=== PATIENT | male | born 1940 | race Caucasian/White ===

== ENCOUNTER 2020-05-07 11:55 | Emergency (ER) | payer MEDICARE, BC ==
[~2020-05-07] VITALS: Ht 172.7 cm; Wt 118.4 kg
[~2020-05-07 11:55] MED LIST: AMLODIPINE BESYL5 MG PO; COZAAR100 MG PO; GLIPIZIDE XL10 MG PO; HYDROCHLOROTHIA25 MG PO; LOVASTATIN40 MG PO; METFORMIN HCL1000 MG PO
--- OUTSIDE RECORDS SUMMARY | 2020-05-07 11:58 | XMS ---
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 Courtney has no Care Guidelines for this patient. Yayo VISIT COUNT (12 MO.) 1 [facility] TOTAL 1 NOTE: Visits indicate total known visits. ED/UCC VISIT TRACKING (12 MO.) 05/07/2020 11:56 [facility] [place] TYPE: Emergency COMPLAINT: - CONFUSION INPATIENT VISIT TRACKING (12 MO.) No inpatient visits to display in this time frame [email or web address]
[2020-05-07] MEDS ORDERED: LASIX40 MG PO (13:45)
[2020-05-07] MEDS ORDERED: ALDACTONE50 MG PO (13:45)
[2020-05-07] MEDS ORDERED: ZYLOPRIM300 MG PO (13:46)
[2020-05-07] MEDS ORDERED: XIFAXAN550 MG PO (13:46)
[2020-05-07] MEDS ORDERED: KRISTALOSE10 GM PO (13:46)
[2020-05-07] MEDS ORDERED: DUREZOL5 ML OS (13:47)
[2020-05-07] MEDS ORDERED: SYSTANE COMPLET10 ML OD (13:48)
[2020-05-07] MEDS ORDERED: SYSTANE GEL EYE10 ML OD (13:48)
[2020-05-07] MEDS ORDERED: TYLENOL EXTRA500 MG PO (13:49)
[2020-05-07] MEDS ORDERED: OXYCODONE HCL5 MG PO (13:49)
[2020-05-07] MEDS ORDERED: METOLAZONE2.5 MG PO (13:50)
[2020-05-07] MEDS ORDERED: ZOFRAN8 MG PO (13:51)
[2020-05-07] MEDS ORDERED: PREDNISONE20 MG PO (13:53)
[2020-05-07] MEDS ORDERED: XTAMPZA ER13.5 MG PO (13:55)
--- NOTE | 2020-05-07 15:47 | EKG ---
[facility] [address] [place] [address] Signed Atrial fibrillation Left axis deviation Incomplete left bundle branch block Abnormal ECG When compared with ECG of 15-APR-2016 10:53, Incomplete left bundle branch block is now present Confirmed by CESILIA ROLDAN DO ([id number]) on 05/07/2020 3:47:17 PM Electronically Signed By: CESILIA ROLDAN DO 05/07/20 1547 PATIENT NAME: SEVERINO STEVEN Electrocardiogram DATE OF : 40 PHYSICIAN: CESILIA ROLDAN DO REPORT #: [id number] REPORT IS CONFIDENTIAL AND NOT TO BE RELEASED WITHOUT AUTHORIZATION
[2020-05-08] MEDS ORDERED: METOPROLOL TART50 MG PO (05:43)
[2020-05-08] MEDS ORDERED: CONSTULOSE10 GM/15 M PO (18:25)
[2020-05-08] MEDS ORDERED: METOPROLOL SUCC50 MG PO (18:27)
[2020-05-08] MEDS ORDERED: GLIPIZIDE ER5 MG PO (18:35)
[2020-05-08] MEDS ORDERED: METFORMIN HCL500 MG PO (18:36)
[2020-05-08] MEDS ORDERED: PROCHLORPERAZIN10 MG PO (18:45)
[2020-05-08] MEDS ORDERED: ATROPINE SULFATE2 ML OS (18:46)
[2020-05-08] MEDS ORDERED: MOMETASONE FURO15 G1 TOP (18:48)
== END 2020-05-07 17:45 | disposition home or self-care (01) ==
LOC: ED 11:55
DX: K74.60 Unspecified cirrhosis of liver (principal); E72.20 Disorder of urea cycle metabolism, unspecified; D69.6 Thrombocytopenia, unspecified; D64.9 Anemia, unspecified; I25.10 Atherosclerotic heart disease of native coronary artery without angina pectoris; E11.9 Type 2 diabetes mellitus without complications; I10 Essential (primary) hypertension; I48.91 Unspecified atrial fibrillation; Z87.891 Personal history of nicotine dependence; Z79.899 Other long term (current) drug therapy; Z79.52 Long term (current) use of systemic steroids
CPT/HCPCS: 74177; 80053; 81001; 82140; 85025; 85610; 85730; 93005; 93010; 99285-25; J2405; Q9967

== ENCOUNTER 2020-05-08 01:53 | Inpatient (IN) | payer MEDICARE, BC, OTHER ==
[~2020-05-08] VITALS: Ht 172.7 cm; Wt 112.9 kg
[~2020-05-08 01:53] MED LIST changes: +ALDACTONE50 MG PO; +DUREZOL5 ML OS; +KRISTALOSE10 GM PO; +LASIX40 MG PO; +METOLAZONE2.5 MG PO; +OXYCODONE HCL5 MG PO; +PREDNISONE20 MG PO; +SYSTANE COMPLET10 ML OD; +SYSTANE GEL EYE10 ML OD; +TYLENOL EXTRA500 MG PO; +XIFAXAN550 MG PO; +XTAMPZA ER13.5 MG PO; +ZOFRAN8 MG PO; +ZYLOPRIM300 MG PO
--- OUTSIDE RECORDS SUMMARY | 2020-05-08 01:56 | XMS ---
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 - 2 Visits in 30 Days CARE PROVIDERS There are no care providers on record at this time. Courtney has no Care Guidelines for this patient. [place]ayo VISIT COUNT (12 MO.) 2 [facility] T[facility] 2 NOTE: Visits indicate total known visits. ED/C VISIT TRACKING (12 MO.) 05/08/2020 01:[address] [facility] [place] TYPE: Emergency COMPLAINT: - FALL 05/07/2020 11:56 [facility] [place] TYPE: Emergency COMPLAINT: - CONFUSION INPATIENT VISIT TRACKING (12 MO.) No inpatient visits to display in this time frame [id number]
--- NOTE | 2020-05-08 04:54 | NUR ---
pt ARRIVES TO [place] FLOOR VIA STRETCHER. TRANSFERRED FROM STRETCHER TO HOSPITAL BED 4PA. pt CONFUSED OF SURROUNDINGS, DATE, ORIENTED TO PERSON, , TOWN, THAT HE'S IN HOSPITAL. ASSESSMENT COMPLETE. ATTENDS PLACED ON pt. REDNESS NOTED IN ADA AREA. PORT FLUSHED WNL, GOOD BLOOD RETURN. ICE WATER PROVIDED, pt TAKING DRINKS OF WATER. CALL LIGHT IN REACH. DAUGHTER IN ROOM. BED ALARM ON.
[2020-05-08] MEDS ORDERED: METOPROLOL TART50 MG PO (05:43)
--- NOTE | 2020-05-08 07:30 | NUR ---
CALL LIGHT ANSWERED. PATIENT RESTING IN BED. DIAPER CARE DONE. PATIENT REPOSITIONED ON HIS LEFT SIDE. TWO PERSON ASSISTING. CALL LIGHT WITHIN REACH. NO OTHER NEEDS AT THIS TIME
--- NOTE | 2020-05-08 08:08 | NUR ---
Daughter uses call light to request assist to move patient. Assist patient to reposition in bed. Daughter states patient gets up and down freqently from chair to bed at home. Previous shift staff feel it is unsafe to stand patient, informed daughter and patient we will request PT to see patient to get him in recliner this AM. Repositioned in bed, head of bed elevated, feet elevated. Assessment completed.
--- NOTE | 2020-05-08 10:26 | NUR ---
PATIENT SITTING UP IN BED. DAUGHTER AND PHYSICAL THERAPIST IN ROOM. PATIENT ASSISTED TO TRANSFER TO THE CHAIR. TWO PERSON ASSISTING WITH WALKER AND GAIT BELT. VITAL SIGNS AND I&O DONE. CHAIR ALARM ON. CALL LIGHT WITHIN REACH. NO OTHER NEEDS AT THIS TIME
--- NOTE | 2020-05-08 11:00 | NUR ---
Patient sitting up in recliner. Finger stick glucose obtained, insulin given and meal provided. Daughter, Radha at bedside. Urinal provided, continent of urine. Daughter and patient deny other needs at this time.
--- NOTE | 2020-05-08 11:52 | NUR ---
PATIENT SITTING UP IN CHAIR. DAUGHTER AND RN IN ROOM. PATIENT USES THE TOILET. TWO PERSON ASSISTING WITH WALKER AND GAIT BELT. PATIENT BACKS TO CHAIR. WARM BLANKET PROVIDED. CALL LIGHT WITHIN REACH. NO OTHER NEEDS AT THIS TIME
--- NOTE | 2020-05-08 11:57 | NUR ---
2 person assist with walker. Continent of stool. Returns to recliner, warm blanket provided. Daughter at bedside.
--- NOTE | 2020-05-08 13:16 | NUR ---
PATIENT SITTING UP IN CHAIR. DAUGHTER IN ROOM. VITAL SIGNS AND I&O DONE. CALL LIGHT WITHIN REACH. NO OTHER NEEDS AT THIS TIME
--- NOTE | 2020-05-08 14:47 | NUR ---
Patient requesting to sit up. Lidocaine patch applied to back, assisted to recliner. Scheduled medications given as prescribed. Patient states he feels pressure when swallowing, but resolves after. Family member in room with patient.
--- NOTE | 2020-05-08 14:58 | NUR ---
SPOKE WITH PATIENT IN ROOM. PATIENT WAS UP IN RECLINER. PATIENT IS ORIENTED TO PERSON AND PLACE BUT IS SLOW TO ANSWER. DAUGHTER IDALMIS IS IN ROOM AND SHE WAS JUST LEAVING. SHE STATES HER SISTER AURA WHO IS POA IS HERE AND COMING TO ROOM. AURA ANTONIO CAME IN AND SPOKE WITH HER AND PATIENT. PATIENT LIVES WITH SANIYA. SANIYA DOES HOME CARE, MEALS. SHE IS UNABLE TO PHYSICALLY HELP HIM THOUGH. THEY HAVE 6 DAUGHTERS, ALL FROM [place] PLAC[place]. THEY ALL TAKE TURNS COMING AND STAYING FOR A WEEK TO HELP. THERE IS A RAMP AT THE HOUSE. PATIENT HAS BEEN AMBULATORY WITH STAND-BY ASSIST. HE DOES HAVE A FWW AND A QUAD CANE AT HOME. SHE STATES THAT THEY DO HIS MEDS INCLUDING FILLING THEM. AURA AND SISTER GREGORY LICONA ARE CO-POA'S, BOTH FINANCIAL AND MEDICAL. THEY PLAN FOR HIM TO RETURN HOME. SHE IS INTERESTED IN HOME HEALTH FOR HIM. PATIENT IS AGREEABLE TO ALL THIS. THEY BOTH STATE THERE IS NO WORRY TO AFFORD MEDS, FOOD OR UTILITIES. PATIENT IS SOMEWHAT UNCOMFORTABLE AND ASKS TO BE HELPED TO BATHROOM. NURSING STAFF CALLED IN TO HELP. CM WILL CONTINUE TO FOLLOW.
--- NOTE | 2020-05-08 15:30 | NUR ---
2PA WITH OTHER SIGN MAKER TO BATHROOM AND BACK TO CHAIR.CALL LIGHT IN LAP. DAUGHTER IN ROOM
--- NOTE | 2020-05-08 15:53 | NUR ---
Sitting up in recliner, eyes closed and respirations even and unlabored. Daughter at bedside.
--- NOTE | 2020-05-08 17:48 | NUR ---
Patient moves from bed to recliner multiple times today. IV fluids infusing. Pressure in abdomen, continent of stool with intermittent incontinence of urine. Patient remains confused. Difficulty hearing. Lidocaine patch to back.
--- NOTE | 2020-05-08 18:00 | NUR ---
PATIENT USING THE TOILET. DAUGHTER AND RN IN ROOM. PERICARE PERFORMED. PATIENT BACKS TO CHAIR. TWO PERSON ASSISTING.WITH WALKER AND GAIT BELT. VITAL SIGNS AND I&O DONE. CALL LIGHT WITHIN REACH. NO OTHER NEEDS AT THIS TIME
[2020-05-08] MEDS ORDERED: CONSTULOSE10 GM/15 M PO (18:25)
[2020-05-08] MEDS ORDERED: METOPROLOL SUCC50 MG PO (18:27)
[2020-05-08] MEDS ORDERED: GLIPIZIDE ER5 MG PO (18:35)
[2020-05-08] MEDS ORDERED: METFORMIN HCL500 MG PO (18:36)
[2020-05-08] MEDS ORDERED: PROCHLORPERAZIN10 MG PO (18:45)
[2020-05-08] MEDS ORDERED: ATROPINE SULFATE2 ML OS (18:46)
[2020-05-08] MEDS ORDERED: MOMETASONE FURO15 G1 TOP (18:48)
--- NOTE | 2020-05-08 18:49 | NUR ---
Medications reconciled using patient med list, RX records and interview with patient's daughter
--- NOTE | 2020-05-08 20:29 | NUR ---
PATIENT CALLED TO USE THE RESTROOM. 1 PA USING WALKER FROM CHAIR TO BATHROOM. PATIENT HAD A MEDIUM FORMED STOOL AND VOIDED UNMEASURED. PATIENT IS BACK IN BED NOW. V/S AND I&O TAKEN AND CHARTED BY PRIMARY RN TRACE. PATIENT'S DAUGHTER IS IN THE ROOM.
--- NOTE | 2020-05-08 20:40 | NUR ---
PT BACK TO BED FROM BR, VOIDED AND HAD A BM. ON ROOM AIR. COOP, 1PA/FWW. LUNGS DIM BASES, ABD LARGE, IVF INFUSING
--- NOTE | 2020-05-08 21:37 | NUR ---
PATIENT CALLED. WENT TO THE BATHROOM ASSISTED 1 PA USING WALKER. PATIENT IS BACK IN BED. WARM BLANKET PROVIDED. DAUGHTER IS IN ROOM.
--- NOTE | 2020-05-08 22:19 | NUR ---
PATIENT IS UP TO THE BATHROOM USING WALKER 1PA. HELPED WIPE HIS PRIVATE. PULL UPS ON. DAUGHTER IS IN THE ROOM.
--- NOTE | 2020-05-08 22:51 | NUR ---
IN BED WATCHING TV, NO C/O PAIN, FALL PRECAUTIONS, CALL LIGHT AT BEDSIDE, FLUIDS
--- NOTE | 2020-05-08 23:00 | NUR ---
PATIENT IS UP TO THE BATHROOM. 1 PA USING WALKER. DAUGHTER IS IN THE ROOM.
--- NOTE | 2020-05-08 23:21 | NUR ---
PATIENT HAD A LOOSE STOOL. PATIENT IS UP IN THE CHAIR. WARM BLANKET PROVIDED. CALL LIGHT WITHIN REACH. DAUGHTER IN THE ROOM.
--- NOTE | 2020-05-08 23:30 | NUR ---
PT UP FROM CHAIR TO BR, VOIDED AND HAD MD SIZE SOFT BM, IRRITATION OF ANAL AREA, SCANT AMOUNT OF RED DRAINAGAE NOTED, IRRITATED BUTTOCKS AREA BARRIER CREAM APPLIED. ABD LARGE DISTENDED, JAUNDICED SKIN AND SCLERA BACK TO BED, TOLERATED FAIR, IVF INFUSING, R PORTACATH, PATENT . CBG 181 RECEIVED 3 UNITS HUMOLOG INSULIN SQ. 2+ EDEMA LE. MULTIPLE BRUISING OVER ARMS. TOLERATING DIET AND FLUIDS, BED ALARM, FALL AND ASPIRATION PRECAUTIONS IN PLACE. FAMILY AT BEDSIDE. PT ON LACTULOSE REGIMEN AND CYTOTOXIC PRECAUTIONS HE LAST HAD CHEMO LAST WEDNESDAY
--- NOTE | 2020-05-09 00:25 | NUR ---
CALL LIGHT ANSWERED. PT UP TO TOILET TO VOID ALTHOUGH WAS UNSUCCESSFUL. PT COUGHED UP PADILLA SPUTUM TWICE. PT RETURNED TO BED AND WARM BLANKETS PROVIDED. CIRO BLOOD NOTED WHILE WIPING ANUS. PT REPORTS HEMORRHOIDS. NO FURTHER NEEDS AT THIS TIME. DAUGHTER IN ROOM WITH PT.
--- NOTE | 2020-05-09 01:01 | NUR ---
pt up to br, voided and had a smear of soft brown bm, back to bed, sob with exertion noted, back to bed with minimum of assist. uses sba-1pa/fww. ivf infusing
--- NOTE | 2020-05-09 01:31 | NUR ---
pt up to chair from bed, legs elevted, c/o 10/10 back and generalized pain. Medicated with Oxycodone 5mg po, tolerting fluids small amounts, no n/v
--- NOTE | 2020-05-09 03:21 | NUR ---
C/O SOB, NOT BEING ABLE TO CATCH BREATH. R22, SATS 99% ROOM AIR, LUNGS W/O CHANGES. MUCH IMPROVED LUNG SOUNDS AT BASES. UP TO BR. INCONTINENT OF BOWELS, VOIDED, DAILY STANDING WEIGHT 108.8#
--- NOTE | 2020-05-09 03:40 | NUR ---
PATIENT USED THE BATHROOM. PATIENT HAD SMALL SOFT STOOL IN PULL UPS . THIS SERVER ADMINISTRATOR HELPED PATIENT WIPED CLEANED PATIENT'S PERINEAL AREA. PATIENT IS BACK IN CHAIR. PATIENT C/O BACK PAIN. DEAN OF GIRLS NOTIFIED DUE TO PRIMARY RN IS ON BREAK. WARM PACK PROVIDED PER DEAN OF GIRLS. DAUGHTER IS IN THE ROOM. DEAN OF GIRLS WAS IN THE ROOM.
--- NOTE | 2020-05-09 03:40 | NUR ---
pt UP TO RESTROOM WITH REYMUNDO SIMONS, SITTING IN CHAIR AT THIS TIME. RATES PAIN 10/10 IN LOWER BACK. WARM PACK PROVIDED REQUESTED. PRN PAIN MEDICATION ADMINISTERED. DAUGHTER IN ROOM. CALL LIGHT IN REACH.
--- NOTE | 2020-05-09 05:19 | NUR ---
PATIENT WAS UP TO THE BATHROOM. 1 PA. PATIENT USED WALKER. PATIENT IS BACK IN BED SIING AT THE EDGE. DAUGHTER IS IN ROOM. PRIMARY RN IS IN THE ROOM.
--- NOTE | 2020-05-09 05:51 | NUR ---
pt has been up to chair, bed and walk to br w 1 pa/fww, slight sob with exertion noted at times. c/o unable to breath, R22, sats 99%, lungs clear bilat, slight dim at bases due to pt being obese but clear other de la vega. Has voided small amounts of QS urine, has had 6 small bm since midnight. Received Lactulose, Skin and sclera looks more jaundiced than at begining of shift. Anxious, easily redirected at times, IS at bedside, return demonstration done, takes it up to 500cc. On room air. Abd large distended. edema to LE. elevated at times, weak gait. IVF was infusing and stopped at this time will notify MD. pt daily weight 108.8kg. 2kg weight loss from admit. Unable to draw blood through R sided portacath. taking small sips, as he c/o sore throat. bedside swallow evaluation wnl. has hx of esophageal varices as per family member. will ask for speech swallow eval,
--- NOTE | 2020-05-09 06:51 | NUR ---
BLOOD DRAWN. UP IN CHAIR, CALMER, NO C/O SOB OR PAIN A TTHIS TIME, IVF INFUSING. CALL LIGHT AND FLUIDS AT HANDS REACH. FAMILY AT BEDSIDE
--- NOTE | 2020-05-09 07:50 | NUR ---
0715: Pt sleeping at this time. The pt has family in the room. Call velez within reach. Report recieved from Betina Magallanes.
--- NOTE | 2020-05-09 10:00 | NUR ---
Met with Markos, his daughter, and his granddaughter, Ariane. Ariane is an RN that works at this hospital. Markos is not feeling well, but states he is ok. Daughter wanting information for in home care givers as they have 6 daughters who take turn caring. Per daughter they need some night time relief. Brochure for helping hands given and also notified how to access [employer] senior resident care director sight. Cautione to screen potention cg and to check references closely. Asked pt if he has considered hospice for comfort care. Daughter states they are not interested. Granddaughter and pt state he is trialing chemo and plans on deciding if he wants to seek comfort care in 2-3 weeks. Pt stating he does not want to live in pain. Discussed plan for dc and family want to take pt home when he is ready for dc. They have all DEM needed. Pt was discussed in MDT and later I spoke with Dr. Michel. Daughter is not ready for discharge. He will need to discuss with her further. Family declined SNF or [facility].
--- NOTE | 2020-05-09 10:04 | NUR ---
PT RESTING IN HIS CHAIR AND REMAINS CONFUSED. FAMILY AT BEDSIDE. PT APPEARS IN NO DISTRESS AT THIS TIME. SEE ASSESSMENT.
--- NOTE | 2020-05-09 11:08 | NUR ---
Pt sleeping, family remains in the room.
--- NOTE | 2020-05-09 12:07 | NUR ---
Pt states he is having some back pain and was medicated as ordered, see emar.
--- NOTE | 2020-05-09 13:00 | NUR ---
Pt resting in his chair. He states that he continues to have some back pain and it is a 2/10 on the non-verbal scale and pt fell to sleep durring this assessment. Pt's family remains in the room, call velez within reach. See assessment.
--- NOTE | 2020-05-09 15:13 | NUR ---
Pt states he is having some pain rated at a 4/10 but is unable to tell me where the pain is located. Pt medicated as ordered, see emar. Pt oriented to person, and year, he is unable to tell me the town we are in but that we are at the hospital.
--- NOTE | 2020-05-09 16:47 | NUR ---
PT SLEEPING AT THIS TIME. PT'S GRANDAUGHTER AT THE BEDSIDE.
--- NOTE | 2020-05-09 21:54 | NUR ---
PT RESTING, WILL DO LACTULOSE AND 2100 MEDS AND ACCUCHECK WHEN HE AWAKES AT FAMILYS REQUESTS. RESTING PEACEFULLY,, ROOM AIR, NO DISTRESS, RESP 16. CALL LIGHT AT HANDS REACH. FAMILY IN ROOM
--- NOTE | 2020-05-09 23:05 | NUR ---
confuse to instructions when getting up, pt unsure whether he was getting up or down., on room air, continues to be jaundiced of skin and sclera. abd large and tender, red carla area, barrier cream applied. attned in place, voided and had loose bm, on lactulose. edema of LE, elevated. c/o 5/10 back and generalized pain, medicated with oxycodone 5mg po, tolerating sips of fluids, ivf infusingh\
--- NOTE | 2020-05-10 01:44 | NUR ---
PT NO LONGER ON CYTOTOXIC PRECAUTIONS, UP TO BR WITH 1pa, FWW, HAD SMEAR OF BM AND VOIDED SMALL AMOUNT OF URINE, BARRIER CREAM TO BUTTOCKS AREA. ATTENDS IN PLACE, BACK TO BED. TOLERATED WELL. LEGS ELEVATED. NO FURTHER C/O PAIN
--- NOTE | 2020-05-10 02:02 | NUR ---
UP TO CHAIR AT THIS TIME, NO C/OPAIN, ONROOM AIR
--- NOTE | 2020-05-10 03:16 | NUR ---
pt up from chair to br, had small amount of soft bm, voided, back to bed. standing scale daily weight 113.1kg, increased from 108.8 yesterday. Pt seems more confused and more slow to respond to instructions. hob and leg elevated. On room air, IVF infusing, taking small sips of water, skin and sclera still jaundiced. family in room
--- NOTE | 2020-05-10 03:20 | NUR ---
ASSISTED PRIMARY RN TRACE TO WEIGH PT. WEIGHED HIM X2 AND BOTH TIMES HE WAS 113.1 KG.
--- NOTE | 2020-05-10 04:47 | NUR ---
rEPOSITIONED IN BED TOWARDS R SIDE. ON ROOM AIR, COOP. IVF INFUSING, NO FURTHER C/O PAIN
--- NOTE | 2020-05-10 06:14 | NUR ---
pt has slept off and on approx 3-4hrs this shift. more confused, requiring several cues, unsure of what action he is to be doing, slow reaponse to instructions. cooperative. Deficits of L eye, generalized edema 2+ LE. daily weight 113.1 kg, yesterdays weight was 108.8kg. getting more tired when walking to br or when transferring from bed to chair. On room air, lungs clear, dim at bases but otherwise clear, has a heart murmur, large abd, tender. Skin and sclera jaundiced, receives Lactulose, has had several small amount of soft bm, incontinent x1, voiding small amounts each time but QS urine. IVF infusing R portacath. tolerting small amounts of fluids. takes meds well. Was medicated x1 with oxycodone/ c/o back pain. family at bedside
--- NOTE | 2020-05-10 07:09 | NUR ---
REPORT RECEIVED FROM TRACE RN, PT RESTING WITH EYES CLOSED ON LEFT SIDE. RESPIRATIONS EVEN AND UNLABORED. TRACE REPORTS PT HAD VERY LITTLE SLEEP LAST NIGHT. PTS DAUGHTER AT BEDSIDE. BED RAILS UP. CALL LIGHT WITHIN REACH. PT ALLOWED TO REST.
--- NOTE | 2020-05-10 08:15 | NUR ---
MORNING ASSESSMENT AND MEDICATION DUE. PT REPORTING SHORTNESS OF BREATH AND STATING "I CAN'T BREATH." PT STATES "I NEED TO GET UP BECAUSE I CAN'T BREATH." 2 PERSON ASSIST UP TO STAND. ADA CARE DONE. DEPENDS CHANGED, BARRIER CREAM APPLIED TO REDNESS IN GLUTEAL AREA. 2 PERSON ASSIST UP TO CHAIR. ASSESSMENT DONE. ABDOMEN LARGE AND FIRM. PTS FAMILY STATES PTS ABDOMEN IS LARGER THAN IT HAS BEEN IN THE PAST FEW DAYS. SKIN JAUNCIED IN COLOR. +3 EDEMA TO LOWER EXTREMITIES. PT HAVING DIFFICULTY SWALLOWING, COUGHING AND CHOAKING NOTED WITH SWALLOWING. 1 PILL TRIED. PT REPORTS DIFFICULTY WITH SWALLOWING PILL. FAMILY REPORTS PT HAS BEEN HAVING TROUBLE SWALLOWING OFF AND ON. [facility] CALLED AND STATES PTS MEDICAIONS CAN BE CRUSHED. MEDICATIONS CRUSHED AND GIVEN WITH PUDDING. PT TOLERATES WELL WITH NO DIFFICULTIES. MORNING CARES DONE. PT STATES "I WANT TO GO HOME, I DON'T WANT TO HERE." PT EXHIBITING SIGNS OF DEPRESSION STATING ABOUT FAMILY "NOONE WANTS TO TALK TO ME." PTS DAUGHTER AT BEDSIDE. PT EATING BREAKFAST. NO ADDITIONAL REQUESTS OR COMPLAINTS AT THIS TIME. CALL LIGHT WITHIN REACH. CHAIR ALARM ON.
--- NOTE | 2020-05-10 08:29 | NUR ---
Patient up to chair with LAST PICKER and RN assisting. Linens changed, face and hands washed.vitals charted
--- NOTE | 2020-05-10 08:55 | NUR ---
PUMP ALARMING, ABX INFUSION COMPLETE. PORT ASSESSSED, WNL. BRISK BLOOD RETURN NOTED. PORT FLUSHED AND HEPARIN LOCKED PER PROTOCOL. ALCOHOL CAPS APPLIED. PT RESTING IN CHAIR. NO ADDITIONAL REQUESTS OR COMPLAINTS. CHAIR ALARM ON. FAMILY AT BEDSIDE. CALL LIGHT WITHIN REACH.
--- NOTE | 2020-05-10 09:24 | NUR ---
PATIENT IN BATHROOM WITH O/T. BACK TO CHAIR, WARM BLANKET PROVIDED.DAUGHTER IN ROOM. CALL LIGHT IN REACH, NO OTHER NEEDS AT THIS TIME
--- NOTE | 2020-05-10 11:00 | NUR ---
UPDATED ON PT NEURO STATUS, WEIGHT GAIN, AND FAMILY REQEUSTS. NO NEW ORDERS AT THIS TIME.
--- NOTE | 2020-05-10 11:01 | NUR ---
THIS RN TO ROOM FOR LAB DRAW AND TO CHECK ON PT. PTS FAMILY AGITATED AND REQUESTS TO SEE MD STATING PT IS MORE LETHARGIC, CANT SLEEP AND IS HAVING TROUBLE BREATHING. EDUCATION DONE WITH FAMILY REGARDING PTS CONDITION. MD UPDATED ON FAMILY REQUESTS. NO NEW ORDERS AT THIS TIME. PT REPORTS "I CAN'T BREATH." WHEN RESTING IN BED. 1 PERSON ASSIST UP TO CHAIR. PT STATES "I'VE NEVER BEEN LIKE THIS BEFORE." PT ORIENTED TO PLACE BUT NOT TO DATE/TIME OR SITUATION AT THIS TIME. FAMILY AT BEDSIDE. CALL LIGHT WITHIN REACH. CHAIR ALARM ON.
--- NOTE | 2020-05-10 12:20 | NUR ---
NOON ASSESSMENT AND MEDICAITONS DUE. PT FOUND UP IN ROOM WITH FAMILY USING RESTROOM. FALL PRECAUTION EDUCATION DONE. ADA CARE DONE. RED RASH NOTED IN ADA AREA TO BE WORSENING, NYSTATIN POWDER ORDERED. BARRIER CREAM APPLIED TO GLUTEAL CLEFT. PT SENSITIVE WITH WIPING. 1 PERSON ASSIST BACK TO BED. +3 PITTING EDEMA CONTINUES IN BILATERAL LOWER EXTREMITIES. ABDOMEN ROUND AND FIRM. PT REPORTS HIS ABDOMINAL DISCOMFORT IS AT 8/10 AND STATES IT IS "THE WORSE PART." PT SHORT OF BREATH WITH ACTIVITY AND CONTINUES TO REPORT DIFFICULTY BREATHING, PT REPOSITIONED FOR COMFORT. MEDICATION GIVEN WITH PUDDING. PT CONTINUES TO COUGH WITH SWALLOWING. PT RESTING WITH EYES CLOSED. HEAD OF BED ELEVATED AT 45 DEGREES. FAMILY AT BEDSIDE. CALL LIGHT WITHIN REACH. BED RAILS UP. BED ALARM ON.
--- NOTE | 2020-05-10 13:18 | NUR ---
PT CALL LIGHT ON. PT REQUESTS ASSISTANCE UP TO CHAIR. PT REPORTS HE CANNOT BREATH IN THE BED. SHOWER OFFERED TO PT. PT DECLINES STATING STATES "I JUST TALK TO THE DOCTOR AND NOW I'M ALL CONFUSED." PTS DAUGHTER STATES THAT PT HAD A CONVERSATION ABOUT A POLST WITH THE DOCTOR AND IT "UPSET HIM." 1 PERSON ASSIST UP TO CHAIR. PT VISITING WITH DAUGHTER. K-PAD HEAT PACK IN PLACE OVER LOWER BACK. NO ADDITIONAL REQUESTS OR COMPLAINTS. CALL LIGHT WITHIN REACH.
--- NOTE | 2020-05-10 13:44 | NUR ---
PT FOUND UP IN ROOM INDEPENDANTLY. PT CONTINEUS TO BE UNSTEADY ON FEET. EDUCATION DONE WITH PT REGARDING SAFETY PRECAUTIONS. PT REPORTS HE IS READY FOR A SHOWER. THIS RN ASSIST PT WITH SHOWER AND SHAMPOO. FRESH GOWN AND SOCKS PROVIDED. NYSTATIN APPLIED TO ADA AREA, BARRIER CREAM APPLIED TO GLUTEAL CLEFT. PT IMPATIENT WITH SHOWER AND AGITATED WITH CARES. MEDICATION GIVEN. PT UP TO CHAIR, K-PAD IN PLACE TO LOWER BACK. PTS FAMILY REQEUSTS THAT MORE THAN ONE VISITOR BE ALLOWED TO COME. PROCESSING REP CONTACTED FOR PERMISSION RELATED TO [facility]-19 POLICY RESTRICTIONS. PT CONTINUES TO HAVE TROUBLE WITH DISORIENTATION, PT STATES [place] IS [place] AT THIS TIME. AWARE OF SURROUNDINGS AND FOLLOW DIRESTIONS, AGITATED. NO ADDITIONAL REQUESTS OR COMPLAINTS. CALL LIGHT JAVY REACH. CHAIR ALARM ON.
--- NOTE | 2020-05-10 15:21 | NUR ---
THIS RN TO ROOM TO CHECK ON PT. PT FINISHED WITH PHYSICAL THERAPY AND VISITING WITH . PT UP TO CHAIR. PT TEARFUL. NO REQUESTS OR COMPLAINTS. PT ALLOWED TIME TO VISIT WITH FAMILY. CALL LIGHT WITHIN REACH. CHAIR ALARM ON.
--- NOTE | 2020-05-10 15:36 | NUR ---
PT CALL LIGHT ON. PT STATES "I WANT A BUCKET." THIS RN TO ROOM TO INVESTIGATE. PT REPORTS NAUSEA AND STATES HE NEEDS A BUCKET "NOT THOSE BAGS." EMESIS BAG PROVIDED. HEPARIN REMOVED FROM PORT A CATH LINE. NAUSEA MEDICATION GIVEN. PORT FLUSHED AND HEPARIN LOCKED PER PROTOCOL. PT REPORTS FEELING COLD. WARM BLANKETS PROVIDED. PT CONTINUES VISITING WITH . CHAIR ALARM ON. CALL LIGHT WITHIN REACH.
--- NOTE | 2020-05-10 15:40 | NUR ---
Briefly spoke with pt and daughter. He has just showered and is very tired. Denies needs. Plans to work with PT so he can go home.
--- NOTE | 2020-05-10 17:00 | NUR ---
AFTERNOON ASSESSMENT DUE. PT AGITATED AND STATES HE IS "NO COMFORTABLE ANYWHERE." PT ASSISTED UP TO RESTROOM WITH 1PERSON ASSIST AND FRONT WHEEL WALKER. ADA CARE DONE. DEPENDS CHANGED, PT INCONTINANT OF BOTH URINE AND STOOL. BARRIER CREAM APPLIED. PT BACK TO BED PER REQUEST. ASSESSMENT DONE. LUNG SOUNDS CLEAR. +3 PITTING EDEMA CONTINUES IN BILATERAL LOWER EXTREMITIES. ABDOMENT FIRM AND LARGE. PT REPORTS 8/10 DISCOMFORT IN ABDOMENT, DECLINES INTERVENTIONS. PT REPORTS HUNGER, DINNER ORDER PLACED. PT ORIENTED TO ALL BUT DATE AND YEAR. PT ABLE TO RECALL EVENTS FROM TODAY. NO ADDITIONAL REQUESTS OR COMPLAINTS AT THIS TIME. CALL LIGHT iLogon REACH. BED ALARM ON.
--- NOTE | 2020-05-10 17:35 | NUR ---
DINNER ARRIVED. 1 PERSON ASSIST FRONT WHEEL WALKER UP TO CHAIR FOR DINNER. MEDICATIONS GIVEN. PT AGITATED WITH MEDICATIONS AND CARES, PT STATES "I'M JUST GOING TO ANYWAY." THERAPUTIC COMMUNICATION DONE. WARM BLANKETS PROVIDED. PTS REMAINS AT BEDSIDE. CALL LIGHT WITHIN REACH. CHAIR ALARM ON.
--- NOTE | 2020-05-10 18:00 | NUR ---
PATIENT CALLED FOR ASSISTANCE, THIS HIDE AND SKIN PROCESSING WORKER FOUND PATIENT HALF-WAY OUT OF BED, WAS ATTEMPTING TO ASSIST HIM TO CHAIR. THIS HIDE AND SKIN PROCESSING WORKER EXPLAINED THE IMPORTANCE OF CALLING FOR STAFF ASSISTANCE FOR PATIENT, AND PATIENT UNDERSTAND. 1PA TO BR FOR BM, NEW BRIEF AND GOWN, LINENS CHANGED. TO CHAIR FOR DINNER, EATING ON COUCH. CHAIR ALARM ON, CALL LIGHT WITHIN REACH
--- NOTE | 2020-05-10 18:50 | NUR ---
PT HERE FOR HEPATIC ENCEPHALOPATHY. 1 PERSON ASSIST, FRONT WHEEL WALKER UP TO RESTROOM FREQUENTLY THIS SHIFT. PT TOLERATING 60G CARB DIET WITH MODERATE APPITITE. LACTULOSE GIVEN WITH GOOD RESULTS AND FREQUENT BOWEL MOVMENTS. PT ORIENTED INCONSISTANTLY THIS SHIFT. +3 PITTING EDEMAN AND ACITIES IN ABDOMENT WORSENING, LASIX AND SPIRONOLACTONE RESTARTED. PORT A CATH HEPARIN LOCKED. SHOWER THIS SHIFT. LIMITED PHYSICAL THERAPY AND OCCUPATIONAL THIS SHIFT RELATED TO PTS POOR TOLERANCE OF CARES AND ACITVITY. PT VOIDING QUANTITY SUFFICIENT. FAMILY AT BEDSIDE FOR ENTIRE SHIFT. PT USES CALL LIGHT INCONSISTANTLY.
--- NOTE | 2020-05-10 19:00 | NUR ---
SHIFT REPORT RECEIVED FROM [facility]. PT DAUGHTER IN ROOM. DISCUSSED CARE PLAN FOR THE NIGHT WITH PT AND DAUGHTER. ALL QUESTIONS ANSWERED CONCERNING NURSING BEST POSSIBLE. DAUGHTER WILL ASK MD ADDITIONAL QUESTIONS TOMORROW. NO OTHER NEEDS AT THIS TIME. CALL LIGHT IN REACH. CHAIR ALARM ON.
--- NOTE | 2020-05-10 19:00 | NUR ---
REPORT GIVEN TO YARI CHESTER. PTS DAUGHTER AT BEDSIDE WITH MULTIPLE QUESITONS FOR THE DOCTOR. PT AND DAUGHTER ASKING ABOUT PTS PLAN OF CARE AND PLAN FOR COMFORT. PT AND DAUGHTER ENCOURAGED TO MAKE A LIST OF QUESTIONS TO ASK THE DOCTOR DURING ROUNDS TOMORROW.
--- NOTE | 2020-05-10 19:14 | NUR ---
VITALS AND I&OS CHARTED. ASSISTED REYMUNDO TEAGUE IN TRANSFERRING PATIENT TO CHAIR, DAUGHTER IN ROOM. CHAIR ALARM ON, 2WARM BLANKETS PROVIDED. PATIENT JOKING WITH DAUGHTER AND STAFF. DAUGHTER VERY APPRECIATIVE OF STAFF. LEGS ELEVATED. CALL LIGHT IN REACH, NO OTHER NEEDS AT THIS TIME
--- NOTE | 2020-05-10 19:45 | NUR ---
IN RM TO ASST RN BOOST PT UP IN BED, WARM BLANKET PROVIDED, WHITEBOARD UPDATED, LATER CAME BK TO PT TO LOOSEN ATTENDS, PT STATED, IT IS TIGHT ON MY WAIST, WILL CHECK ATTEND SIZE/CHANGE OUT ATTEND ONCE PT IS UP TO THE TOILET, CALL LIGHT IN PLACE, BED ALARM SET, NO FURTHER REQUEST AT THIS TIME
--- NOTE | 2020-05-10 20:00 | NUR ---
PT UP TO BR, FWW 1PA, BACK TO BED. WATER PROVIDED. NO OTHER NEEDS AT THIS TIME. CALL LIGHT IN REACH. BED ALARM ON.
--- NOTE | 2020-05-10 21:35 | NUR ---
2PA BOOST PT UP IN BED, PT OPTED TO GET UP TO THE CHAIR INSTEAD, 1/2PA PT OUT OF BED, SBA PT WITH FWW TO THE CHAIR, PROVIDE PT WITH BLANKETS FOR COMFORT, NO FURTHER REQUEST AT THIS TIME
--- NOTE | 2020-05-10 22:53 | NUR ---
CAME IN TO ASST RN WITH VITALS AND I&OS, TIDY THE AND BED LINENS, RN IN FOR PT ASSESMENTS fresh water given, NO FURTHER REQUESTS AT THIS TIME
--- NOTE | 2020-05-10 23:00 | NUR ---
ASSESSMENT COMPLETED. GCS 15. A&O TO PERSON, PLACE BUT NOT TIME AND EVENTS. LUNGS DIMINISHED IN ALL LOBES. ABD FIRM, MODERATELY DISTENDED, BOWEL TONES ACTIVE. REDNESS TO GROIN, MED PROVIDED. SCHEDULED MED PROVIDED. PRN PAIN MED PROVIDED FOR 8/10 BACK PAIN. 3+ BLE EDEMA. CMS INTACT X4 EXTREMITIES. HEART MURMUR NOTED. PORT WNL. SCATTERED BRUISING NOTED. BUTTOCKS SKIN IS IRRITATED, BARRIER CREAM APPLIED. NO OTHER NEEDS AT THIS TIME. CALL LIGHT IN REACH.
--- NOTE | 2020-05-11 | NUR ---
GOT PT UP TO THE CHAIR, C/O CLUASETRAPHOBIA CANT CATCH BREATH, BLANKET PROVIDED, NOTIFIED RN PT C/O PAIN, RN WILL BE IN THE RM SHORTY, NO FURTHER REQUEST AT THIS TIME
--- NOTE | 2020-05-11 00:05 | NUR ---
PT COMPLAINS OF 8/10 BACK PAIN. PRN PAIN MED PROVIDED. NO OTHER NEEDS AT THIS TIME. CALL LIGHT IN REACH.
--- NOTE | 2020-05-11 01:37 | NUR ---
PT RESTING IN CHAIR, EYES CLOSED, CHAIR ALARM ON. DAUGHTER IN ROOM. CALL LIGHT IN REACH. RR EVEN, UNLABORED.
--- NOTE | 2020-05-11 02:03 | NUR ---
got pt up from the chair to the toilet, new attends provided, then got pt into bed, adj attends for fit, call light in reach, bed alarm on, fresh water given, no further requests at this time
--- NOTE | 2020-05-11 03:12 | NUR ---
PT RESTING IN BED, EYES CLOSED. RR EVEN, UNLABORED. CALL LIGHT IN REACH.
--- NOTE | 2020-05-11 03:58 | NUR ---
PTs DAUGHTER CALLS. PT WANTS UP TO CHAIR. UP TO CHAIR, 1PA FWW, ALARM ON. GCS 15. A&O TO PERSON, TIME BUT NOT PLACE OR EVENTS. LUNGS CLEAR IN ALL LOBES, SLIGHTLY DIMINISHED IN LOWER LOBES. ABD FIRM, NONTENDER, BOWEL TONES HYPERACTIVE. BLE 3+ EDEMA. GENERALIZED EDEMA IN STOMACH AND HANDS. CMS INTACT X4 EXTREMITIES. SOB WITH ACTIVITY. WARM BLANKETS PROVIDED. NO OTHER NEEDS. CALL LIGHT IN REACH. DAUGHTER IN ROOM.
--- NOTE | 2020-05-11 05:36 | NUR ---
PT SLEPT OFF AND ON LAST NIGHT. BACK PAIN WAS MANAGED WITH PRN MEDS AND HEAT PACKS. PT HAD MANY LOOSE STOOLS THIS SHIFT. GROIN AREA RED, NYSTOP APPLIED. BUTTOCKS RED AND PAINFUL, BARRIER CREAM PROVIDED. PORT WNL. LUNGS CLEAR IN ALL LOBES BUT DIMINISHED IN LOWER LOBES. BLE EDEMA 3+. GENERALIZED EDEMA IN HANDS AND ABDOMEN. PT HAS SOB WITH ACTIVITY. VSS. UOS. DAUGHTER HAS BEEN IN ROOM OVERNIGHT.
--- NOTE | 2020-05-11 06:41 | NUR ---
PT PORT ACCESSED FOR BLOOD DRAW. VIGORIOUSLY FLUSHED WITH 20ML NS, 5ML WASTED. FLUSHED AGAIN AND HEPARIN LOCKED WITH NEW CLAVE. PT TOLERATED WELL. PT BACK PAIN 8/10, PRN PAIN PROVIDED. NO OTHER NEEDS AT THIS TIME. CALL LIGHT IN REACH. DAUGHTER IN ROOM.
--- NOTE | 2020-05-11 07:43 | NUR ---
Pt in chair visiting with daughter, respirations even and non labored. Pt has no needs at this time, respirations even and non labored.
--- NOTE | 2020-05-11 08:30 | NUR ---
1PA FROM CHAIR TO BED USING FWW. DAUGHTER IN ROOM. DAUGHTER EXPRESSES CONCERN NADINE HAS HAD 2-3 CUPS OF WATER SINCE LAST NIGHT AND HASN'T VOIDED MUCH. WILL NOTIFY RN OF HER CONCERN. PATIENT REQUESTED LATE BREAKFAST, WOULD LIKE TO TAKE A NAP CALL LIGHT IN REACH, NO OTHER NEEDS
--- NOTE | 2020-05-11 08:52 | NUR ---
Patient resting, daughter requesting I come back for medication pass around 9:15am. No needs at this time. Call light within reach.
--- NOTE | 2020-05-11 09:53 | NUR ---
PATIENT AWAKE IN CHAIR, DAUGHTER IN ROOM. VITALS AND I&OS CHARTED.CALL LIGHTI N REACH, P/T NO WIN TO WORK WITH PATIENT
--- NOTE | 2020-05-11 12:25 | NUR ---
Daughter at bedside visitng. Pt eating lunch at this time, respirations even and non labored. No needs.
--- NOTE | 2020-05-11 13:08 | NUR ---
Pt in bed at this time visiting with Dr. Darby. Pt has no distress noted. Daughter at bedside. No needs at this time. Call light within reach.
--- NOTE | 2020-05-11 13:50 | NUR ---
Oxycodone 5mg po admin for reports of 8/10 back pain.
--- NOTE | 2020-05-11 14:01 | NUR ---
PATIENT AWAK EIN CHAIR, DAUGHTER IN ROOM. VITALS AND I&OS CHARTED. YOJANA SODA GIVEN TO PATIENT, CALL LIGHT IN REACH, NO OTHER NEDS AT THIS TIME
--- NOTE | 2020-05-11 15:18 | NUR ---
PATIENTS DAUGHTER CALLED FOR ASSITANCE TO BR. FOUND PATIENT AT EDGE OF CHAIR, DAUGHTER ASSISTING HIM WITH URINAL. MISSED URINAL, GOWN, BRIEF AND SOCKS CHANGED. FLOOR AND PATIENT CLEANED. LEGS ELEVATED IN CHAIR, WARM BLANKET PROVIDED. NO OTHER NEEDS AT THIS TIME
--- NOTE | 2020-05-11 15:36 | NUR ---
PATIENTS DAUGHTER CALLED FOR ASSISTANCE WITH PATIENT. NADINE HAD TRANSFERRED HIMSELF WITH HELP OF DAUGHTER FROM CHAIR TO BED. PATIENT AND DAUGHTER WERE REMINED TO PLEASE CALL FOR STAFF ASSISTANCE BEFORE TRANSFERIGN. THIS BEAUTY SHOP MANAGER AND REYMUNDO BROWN REPOSITIONED PATIENT. PATIENT WOULD LIKE TO KEEP GOWN OFF AND NO COVERS AT THIS TIME. CALL LIGHT IS WITHIN REACH. BED ALARM ON
--- NOTE | 2020-05-11 16:17 | NUR ---
PATINET AT SIDE OF BED TO USE URINAL AND THEN TO CHAIR. LEGS ELEVATED NO GOWN, BRIEF AND BLANKET ONLY. DAUGHTER IN ROOM. REMINDED BOTH TO CALL FOR ASSISTANCE. CHAIR ALARM ON, CALL LIGHT IN LAP
--- NOTE | 2020-05-11 17:21 | NUR ---
1PA TO BR USING FWW. DAUGHTER IN ROOM. BACK TO BED, DINNER ORDERED. CALL LIGHT WITHIN REACH. NO OTHER NEEDS AT HIS TIME
--- NOTE | 2020-05-11 19:10 | NUR ---
PT RESTING IN BED, EYES CLOSED. DAUGHTER IN ROOM. BED ALARM ON, CALL LIGHT IN REACH.
--- NOTE | 2020-05-11 22:00 | NUR ---
PT ASSESSMENT COMPLETED. GCS 15, SLOW TO RESPOND AND UNSURE OF WHAT HE WANTS TO DO AT TIMES. A&O TO PERSON AND PLACE NOT TIME OR EVENTS. SCHEDULED MEDS PROVIDED. PT COMPLAINS OF 6/10 BACK PAIN, PRN PAIN MED AND HEAT PACK PROVIDED. LUNGS CLEAR IN ALL LOBES. ABD FIRM, SEVERELY DISTENDED, NON TENDER, BOWEL TONES ACTIVE. HEART TONES REGULAR. CMS INTACT X4 EXTREMITIES. BLE 3+ EDEMA, GENERALIZED EDEMA OF HANDS AND ABD. DAUGHTER IS IN ROOM, SHE ASSISTS PT FREQUENTLY AND AT TIMES, ATTEMPTS TO INTERUPT CARE. PT STATES "JUST TAKE ME UP TO THE RANCH AND LEAVE ME." "I'M SORRY I AM SUCH A BURDEN ON EVERYONE." FAMILY ASKS COPIOUS QUESTIONS ABOUT MEDICATIONS, CARE, PLANS AND PT PAIN. REVIEWED DOCTOR NOTES WITH FAMILY, EDUCATED FAMILY BEST POSSIBLE AND ENCOURAGED THEM TO ASK THE DOCTOR ADDITIONAL QUESTIONS OR INCOMPLETED INFORMATION IN THE MORNING. FAMILY ASKS WHY HE IS NOT GETTING THE OTC SYSTANE GEL DROPS, DAUGHTER REFERRED TO MD AGAIN. PT APPEARS TO HAVE DIFFICULTY SWALLOWING PILLS, EVEN WHEN THE LARGER ONES ARE CUT. HE STATES HE HAS "ALWAYS HAD PROBLEMS SWALLOWING WATER." PT OFFERED TO BE PROVIDED WITH THE PILLS IN APPLESAUCE, DECLINED. PORT WNL. PT WANTS TO WALK AROUND THE ROOM, EDUCATION PROVIDED ABOUT USING WALKER AND RAILS TO GET OUT OF BED. PT WALKS FOR 3 MINUTES, BACK TO BED, REPOSITIONED. NO OTHER NEEDS AT THIS TIME. CALL LIGHT IN REACH.
--- NOTE | 2020-05-12 01:04 | NUR ---
PT CALLED TO GET UP FROM THE CHAIR, CHANGED OUT ATTENDS, GOT PT IN BED TO PERFOMED ADA CARE, APPLIED NYASTOP (SP?) POWDER TO GROIN AREA, PT SELF BOOSTED IN BED, NO FURTHER REQUEST AT THIS TIME
--- NOTE | 2020-05-12 01:05 | NUR ---
PT UP FROM CHAIR TO BR AND BACK TO BED. GROIN AREA CLEANED AND NYSTOP APPLIED. PT BACK PAIN 11/16, PT REPOSITIONED. NO OTHER NEEDS AT THIS TIME. CALL LIGHT IN REACH.
--- NOTE | 2020-05-12 03:49 | NUR ---
PT CALLED, GOT PT UP TO VOID, ASST PT TO WIPE, PT DECIDED TO SIT UP IN THE CHAIR FOR NOW, FRESH WATER GIVEN, RN TO CHECK PAIN MED SCHEDULE, PT STATES, 'I NEED TO GET OUT OF HERE, I JUST WANT TO GO HOME,' NO FURTHER REQUESTS AT THIS TIME
--- NOTE | 2020-05-12 04:21 | NUR ---
PT STATES HE HAS 8/10 BACK PAIN, PRN PAIN MED PROVIDED. ASSESSMENT COMPLETED.GCS 15, A&O TO PERSON, PLACE, NOT EVENT OR TIME. LUNGS CLEAR. ABD FIRM, SEVERLY DISTENDED, NON TENDER, BOWEL TONES ACTIVE. BLE 3+ EDEMA. GENERALIZED EDEMA IN HANDS AND ABD. CMS INTACT X4 EXTREMITIES. HEART REGULAR WITH MURMUR. NO OTHER NEEDS AT THIS TIME. CALL LIGHT IN REACH. DAUGHTER IN ROOM.
--- NOTE | 2020-05-12 04:45 | NUR ---
GOT PT UP FROM CHAIR, MADE ONE LAP IN THE ROOM, PT IS NOW BK IN BED, CALL LIGHT IN PLACE, NO FURTHER REQUEST AT THIS TIME
--- NOTE | 2020-05-12 06:25 | NUR ---
PT PORT ACCESSED FOR BLOOD DRAW. FLUSHED VIGOROUSLY WITH 20ML, 3ML BLOOD WATED. CLAVE CHANGED, LINE FLUSHED VIGORIOUSLY WITH 20ML AND LOCKED. PT TOLERATED WELL. NO OTHER NEEDS AT THIS TIME. CALL LIGHT IN REACH.
--- NOTE | 2020-05-12 07:33 | NUR ---
Pt resting, respirations even and non labored. Daughter at bedside. Pt has no ditress. Personal supplies and call light within reach.
--- NOTE | 2020-05-12 08:30 | NUR ---
Patient's family requesting patient sleep a bit more this morning.
--- NOTE | 2020-05-12 09:20 | NUR ---
Patient requesting I come back for medication admin after he eats breakfast.
--- NOTE | 2020-05-12 09:26 | NUR ---
BEDBETH COMPLETE, PATIENT STILL VERY TENDER IN ADA AREA AND BETWEEN LEGS. NEW GOWN AND LINENS CHANGED. UP TO CHAIR FOR BREAKFAST, DAUGHTER IN ROOM. WILL BE HERE THIS MORNING. CALL LIGHT IS WITHIN REACH
--- NOTE | 2020-05-12 12:50 | NUR ---
Patient eating lunch at this time with his . No needs at this time. Call light within reach.
--- NOTE | 2020-05-12 13:57 | NUR ---
Oxycodone 5mg po admin for reports of 5/10 lower back pain.
--- NOTE | 2020-05-12 14:18 | NUR ---
VITALS AND I&OS CHARTED. IN ROOM. UP TO BR, BARRIER CREAM APPLIED, BACK TO CHAIR. LEAVING, DAUGHTER HERE NOW. CALL LIGHT IN REACH
--- NOTE | 2020-05-12 18:02 | NUR ---
1PA FROM CHAIR TO BED. DAUGHTER IN ROOM. WARM BLANKET PROVIDED, CALLLIGHT IN REACH
--- NOTE | 2020-05-12 19:20 | NUR ---
SHIFT REPORT RECEIVED FROM SUGAR LANCE AT BEDSIDE. PT AWAKE AND AMBULATING FROM BATHROOM TO BED WITH HELP FROM REYMUNDO NEWTON. NO DISTRESS NOTED. RIGHT PORT HEP LOCKED BY SUGAR CHESTER. CALL LIGHT INR EACH, FAMILY IN ROOM.
--- NOTE | 2020-05-12 19:36 | NUR ---
WAS IN PT RM, GOT PT UP TO THE TOILET, ADA CARE AND CREAM PROVIDED TO PTS REAR, PT IS BK TO BED NOW, SITTING UP IN BED, NO FURTHER REQUESTS AT THIS TIME BED ALARM IS SET
--- NOTE | 2020-05-12 19:53 | NUR ---
DAUGHTER TO NURSE'S STATION FOR HELP WITH LIGHTS. pt REQUESTING TO GET UP OUT OF BED. 1PA TO CHAIR WITH FWW. pt C/O BACK PAIN, DAUGHTER MASSAGING BACK. HEAT PAD IN PLACE. CALL LIGHT IN REACH.
--- NOTE | 2020-05-12 20:19 | NUR ---
CAME IN TO GET VITALS, I&Os IN, COMMISSIONS MANAGER IN FOR PM MEDS, NOFTIED PRIMARY OF LOW BP, FRESH ICE WATER GIVEN, NO FURTHER NEEDS AT THIS TIME
--- NOTE | 2020-05-12 20:20 | NUR ---
TOLD BY MILLING MACHINE OPERATOR GEAR BAILEY, PT'S BP 96/49, MANUAL. HR 81. TELEPHONE ORDER READ BACK TO HOLD EVENING SCHEDULED DOSE OF LOPRESSOR. MILLING MACHINE OPERATOR GEAR UPDATED.
--- NOTE | 2020-05-12 20:32 | NUR ---
pt PROVIDED WITH WARM BLANKETS REQUESTED. BP 96/50 MANUALLY. MD NOTIFIED BY PRIMARY RN MARILIN. TELEPHONE ORDER TO HOLD SCHEDULED BP MEDICATION. EDUCATION PROVIDED TO pt AND DAUGHTER. pt RATES PAIN 8/10 IN LOWER BACK, LEGS, "ALL OVER". PRN PAIN MEDICATION ADMINISTERED. CBG 153. PRIMARY RN NOTIFIED. pt UP IN CHAIR, DAUGHTER AT SIDE.
--- NOTE | 2020-05-12 21:00 | NUR ---
ASESSMENT COMPLETE, SCHEDULED MEDS ALREADY GIVEN BY PLATEN DRIER OPERATOR BAILEY. PT ASSISTED INTO BED, NO PAIN REPORTED. RECENTLY GIVEN PRN PAIN MEDICATION (SEE EMAR). BED ALARM ON FOR SAFETY, DAUGHTER IN ROOM. PORT DRESSING INTACT. NO ADDITIONAL NEEDS, CALL LIGHT IN REACH.
--- NOTE | 2020-05-12 21:47 | NUR ---
PT NEEDED TO SIT UP ON THE SIDE OF THE BED, WILL ROUND BK WITH PT, NO FURTHER REQUEST AT THIS TIME
--- NOTE | 2020-05-12 21:47 | NUR ---
pts call light was going off went into room and daughter had assisted him to restroom. pt helped back into bed, HENRIK Vigil in room.
--- NOTE | 2020-05-12 22:49 | NUR ---
GOT PT INTO BED, PILLOWS ADDED FOR COMFORT, BED ALARM SET, PT HAS NO FURTHER REQUESTS AT THIS TIME, WILL LET PT REST AND SEE IF HE CAN GET GET COMFORTABLE
--- NOTE | 2020-05-13 00:32 | NUR ---
PT REPORTING INCREASING BACK PAIN, PRN TYLENOL GIVEN (SEE EMAR). PT STANDING, LAMAR IN ROOM TO ASSIST PT TO CHAIR. ALARM ON. DAUGHTER IN ROOM.
--- NOTE | 2020-05-13 01:45 | NUR ---
PT UP SBA WITH FWW TO VOID AND BACK TO BED. ASSESSMENT COMPLETE, NO NEW CHANGES OR CONCERNS. PT REPORTS CHRONIC PAIN, 03/18. ASSISTED WITH REPOSITIONING, HEAT PACK IN PLACE. DAUGHTER IN ROOM. BLE ELEVATED. NO FURTHER NEEDS, CALL LIGHT IN REACH. BED ALARM ON.
--- NOTE | 2020-05-13 03:43 | NUR ---
PT WAS GETTING OUT OF BED, NEEDED TO VOID, SBA PT TO THE TOILET, PT NOW UP IN THE CHAIR, LASHAWN OF PT PROVIDE BACK MASSAGE TO PT, PT C/O LOWER BACK PAIN AND SOB FROM BEING IN PAIN, RN IN TO PROVIDE PAIN MED, PUT PT FEET UP, PILLOWS ADDED FOR COMFORT, LEFT TO REST, INFORMED PT TO LET THE MED TAKE ITS TIME TO WORK, NO FURTHER REQUESTS AT THIS TIME, CHAIR ALARM IS ON
--- NOTE | 2020-05-13 05:37 | NUR ---
AM BLOOD DRAW COMPLETED PER HOSPITAL POLICY. BRISK BLOOD RETURN NOTED. PORT DRESSING INTACT, FLUSHED AND HEP LOCKED ALSO PER POLICY. SOMMELIER LAMAR IN ROOM FOR DAILY WEIGHT AND AM VS. DAUGHTER ALSO IN ROOM.
--- NOTE | 2020-05-13 06:42 | NUR ---
PT ASSISTED WITH REPOSITIONING WITH HELP FROM REYMUNDO NEWTON. HIPS FLOATED, DAUGHTER IN ROOM. NO ADDITIONAL NEEDS, CALL LIGHT IN REACH. BED ALARM ON FOR SAFETY.
--- NOTE | 2020-05-13 07:59 | NUR ---
Pt assisted to chair for breakfast; standby assist with walker, toelrated well. Right chest port accessed, brisk blood return and flushed with normal saline. Daughter at bedside visiting. Pt reports ongoing chronic back pain; medication, lido patch and heat in use for comfort. Pt has no current needs. Call light within reach.
--- NOTE | 2020-05-13 09:42 | NUR ---
Patient taking a shower at this time with MARINE STEAM FITTER assist. Will come back for am medication pass when he is out of shower and available.
--- NOTE | 2020-05-13 10:04 | NUR ---
PATIENT UP TO BATHROOM, THEN TO SHOWER CHAIR, 1PA FWW. SHAMPOO, ADA CARE, SKIN CARE, AM CARE DONE. LINENS CHNAGED. NEW GOWN AND SOCKS PROVIDED. PATIENT NOW BACK TO CHAIR, 1PA FWW. DAUGHTER IN ROOM. CALL LIGHT IN REACH. NO FURHTER NEEDS AT THIS TIME.
--- NOTE | 2020-05-13 10:06 | NUR ---
Oxycodone 5mg po admin for reports of 9/10 lower back pain.
--- NOTE | 2020-05-13 10:22 | NUR ---
Dr. Darby aware of bp 97/57, p86.
--- NOTE | 2020-05-13 10:43 | NUR ---
Patient requesting to take a nap until 1pm. Sign placed on door at this time. Daughter at bedside. Pt understands he needs to call staff if he needs to get up. Call light within reach.
--- NOTE | 2020-05-13 11:00 | NUR ---
Spoke with Alyson, daughter, and Markos. Discussed is discharging him today and asked what needs I can help with for his dc. Reviewed HH. Daughter has many questions about transfer to higher level of care. Discussed Dr. Darby has already spoken with the family about this and she does not feel this is needed, he can be seen on an OP basis. Markos asks about SNFS and informed if he needs a SNF he has had a 3 night stay IP, so he can go if needed in the next 30 days. They deny further needs. Dr Darby will see prior to dc at the family request.
--- NOTE | 2020-05-13 13:10 | NUR ---
Daughter remains at bedside visiting patient. Pt sitting up in chair, respirations even and non labored. Pt snacking on lunch. No needs at this time. Personal supplies and call light within reach.
--- NOTE | 2020-05-13 13:58 | NUR ---
PATIENT UP TO BATHROOM AND BACK TO CHAIR, 1PA FWW. DAUGHTER IN ROOM. CALL LIGHT IN REACH. NO FURTHER NEEDS AT THIS TIME.
--- NOTE | 2020-05-13 14:15 | NUR ---
Alyson requests I repeat what I said to family members who are on the phone, repeated info I discussed earlier. Family denies questions.
--- NOTE | 2020-05-13 15:30 | NUR ---
Notified Dr. Darby has written an Rx for a walker. To pt's room and spoke with pt as he had states he has a walker at home. Pt states he does, daughter was unaware. Rx cancelled. Daughter plans to take pt home in her car.
--- NOTE | 2020-05-13 15:45 | NUR ---
PATIENT SITTING UP IN BED. THE FINAL VITAL SIGNS WERE OBTAINED PRIOR TO DISCHARGE FROM THE UNIT
--- NOTE | 2020-05-13 18:00 | NUR ---
Chart faxed to [facility] per family request for PT/OT/RN/bathaid. H&P, progress notes, Covid, face sheet, dc summary.
== END 2020-05-13 16:00 | disposition home health service (06) | DRG 442 ==
LOC: ED 01:53 → MS 01:55
PROVIDERS: ADMIT Student in an Organized Health Care Education/Training Program; ATTEND Student in an Organized Health Care Education/Training Program
DX: K72.00 Acute and subacute hepatic failure without coma (principal); N17.9 Acute kidney failure, unspecified; I50.32 Chronic diastolic (congestive) heart failure; C83.30 Diffuse large B-cell lymphoma, unspecified site; Z20.828 Contact with and (suspected) exposure to other viral communicable diseases; I11.0 Hypertensive heart disease with heart failure; K74.60 Unspecified cirrhosis of liver; K76.0 Fatty (change of) liver, not elsewhere classified; E11.9 Type 2 diabetes mellitus without complications; E78.5 Hyperlipidemia, unspecified; E79.0 Hyperuricemia without signs of inflammatory arthritis and tophaceous disease; I35.0 Nonrheumatic aortic (valve) stenosis; H54.62 Unqualified visual loss, left eye, normal vision right eye; Z79.84 Long term (current) use of oral hypoglycemic drugs; Z79.891 Long term (current) use of opiate analgesic; Z79.52 Long term (current) use of systemic steroids; Z79.899 Other long term (current) drug therapy
CPT/HCPCS: 70450; 80048; 80053; 80076; 82140; 82607; 82977; 83615; 83735; 83880; 84100; 84443; 85025; 85610; 85651; 97110; 97116; 97163; 97166; 97530; 99285-25; A9270; C9803; J0696; J0780; J1815; J1940; J2405; J3480; J7030; J7060; J7121